=== PATIENT | female | born 1985 | race Two or more races ===

== ENCOUNTER 2016-07-01 21:50 | Emergency (ER) | payer MEDICAID, OTHER ==
[~2016-07-01] VITALS: Ht 165.1 cm; Wt 86.2 kg
[2016-07-01 22:18] VITALS: BP 126/80
[2016-07-01 22:45] LABS: Urine RBC None Seen /hpf (0 - 4)
[2016-07-01 23:10] LABS: Urine Bilirubin Negative (Negative); Urine Blood Negative /uL (Negative); Urine Color Yellow (Yellow); Urine Glucose Normal (Normal); Urine Ketone Negative (Negative); Urine Nitrite Negative (Negative); Urine Squamous Epithelial Cell FEW /hpf (<5); Urine Urobilinogen Normal (Negative); Urine pH 5.5 (5.0-8.0)
== END 2016-07-02 01:56 | disposition left against medical advice (07) ==
LOC: ER 22:01
DX: R07.9 Chest pain, unspecified (principal); Z53.21 Procedure and treatment not carried out due to patient leaving prior to being seen by health care provider
CPT/HCPCS: 81001; 81025; 93005